=== PATIENT | male | born 2000 | race African-American/Black ===

== ENCOUNTER 2021-03-22 17:58 | Inpatient (IN) ==
[2021-03-22] MEDS ORDERED: ONDANSETRON 4 MG/2 ML VIAL IV STA (18:05)
[2021-03-22] MEDS ORDERED: SODIUM CHLORIDE 0.9% 2,000 ML IV STA (18:05)
[2021-03-22] MEDS ORDERED: ONDANSETRON 4 MG/2 ML VIAL ONE (18:05)
[2021-03-22 18:16] LABS: Basophils # 0.1 10*3/uL (0.0-0.2); Basophils % 0.5 % (0.0-0.8); Eosinophils # 0.1 10*3/uL (0.0-0.87); Eosinophils % 0.8 % (0.00-10.9); Hematocrit 44.5 VOL% (42.0-52.0); Hemoglobin 15.6 GM/DL (14.0-18.0); Immature Granulocytes % 0.2 %; Immature Granulocytes Absolute 0.02 #; Lymphocytes # 4.4 10*3/uL (1.4-4.0); Lymphocytes % 46.2 % (21.2-54.2); Mean Corpuscular HGB Conc 35.1 GM/DL (32-36); Mean Corpuscular Volume 89.2 FL (87-102); Mean Platelet Volume 10.1 FL (9.6-12.0); Monocytes % 10.2 % (1.7-12.7); Neutrophils % 42.1 % (38.7-73.9); Platelet Count 225 T/CUMM (130-400); Red Blood Count 4.99 MC/CUMM (3.8-5.5); Red Cell Distribution Width 12.9 % (9.3-17.3); White Blood Count 9.5 T/CUMM (4-12)
[2021-03-22] MEDS ORDERED: MORPHINE 4 MG/1 ML VIAL ONE (18:29)
[2021-03-22] MEDS ORDERED: PIPERACILLIN/TAZOBACTAM 3,375 MG in SODIUM CHLORIDE 0.9% 100 ML IV STA (18:30)
[2021-03-22] MEDS ORDERED: MORPHINE 4 MG/1 ML VIAL IV STA ×2 (18:30→19:12)
[2021-03-22] MEDS ORDERED: DIPH/TET/ACEL PERT BOOSTER VACCINE 0.5 ML VIAL IM ONE (18:30)
[2021-03-22 18:36] LABS: Albumin 4.5 G/DL (3.4-5.0); Bilirubin,Total 0.8 MG/DL (0.2-1.0); Calcium 9.5 MG/DL (8.5-10.1); Osmolality,Calculated 279.4 MOS/KG (273-304); Potassium 3.7 MMOL/L (3.5-5.1); Total Protein 8.8 G/DL (6.4-8.2)
[2021-03-22] MEDS ORDERED: ROCURONIUM 50 MG/5 ML VIAL IV ONE ×2 (19:01→20:19)
[2021-03-22] MEDS ORDERED: LIDOCAINE 2% 5 ML VIAL ONE (19:01)
[2021-03-22] MEDS ORDERED: ETOMIDATE 40 MG/20 ML VIAL IV ONE (19:01)
[2021-03-22] MEDS ORDERED: SUCCINYLCHOLINE 200 MG/10 ML VIAL ONE (19:01)
[2021-03-22] MEDS ORDERED: KETAMINE 500 MG/10 ML VIAL ONE (19:03)
[2021-03-22] MEDS ORDERED: MIDAZOLAM 2 MG/2 ML VIAL ONE ×3 (19:05→21:40)
[2021-03-22 19:20] LABS: Bilirubin,Urine Negative (Negative); Blood, Urine Negative (Negative); Glucose,Urine (UA) Negative (Negative); Ketones,Urine Negative (Negative); Mucus,Urine Occasional /LPF (Occasional); Nitrite,Urine Negative (Negative); Protein,Urine 30 MG/DL; RBC,Urine 6 /HPF (0-4); Squamous Epithelial Cell,Urine Occasional /HPF (0-10); Urine Appearance CLEAR (Clear); Urine Color Yellow (Yellow); Urine Specific Gravity 1.048 (1.001-1.035); Urine Urobilinogen < 2.0 EU/DL (0.2-1.0)
[2021-03-22 19:29] LABS: Barbiturates Screen,Urine Negative (Negative); Benzodiazepines Screen,Urine Negative (Negative); Cannabinoid Screen,Urine Positive (Negative); Opiate Screen,Urine Positive (Negative); Phencyclidine Screen,Urine Negative (Negative)
[2021-03-22] MEDS ORDERED: LACTATED RINGERS 2,000 ML IV ONE (20:15)
[2021-03-22] MEDS ORDERED: SODIUM CHLORIDE 0.9% 1,000 ML IV ONE (20:15)
[2021-03-22] MEDS ORDERED: PANTOPRAZOLE 40 MG VIAL IV ONE (20:20)
[2021-03-22] MEDS ORDERED: PHENYLEPHRINE 1 MG/10 ML SYRINGE IV ONE (20:27)
[2021-03-22] MEDS ORDERED: ALBUMIN 5% 12.5 GM/250 ML VIAL IV ONE (20:54)
[2021-03-22] MEDS ORDERED: HYDROmorphone 2 MG/1 ML VIAL ONE (21:42)
[2021-03-22] MEDS ORDERED: SEVOFLURANE 1 UNIT/15 MINUTE INH ONE (21:53)
[2021-03-22] MEDS ORDERED: LABETALOL 20 MG/4 ML SYRINGE IV ONE (21:53)
[2021-03-22] MEDS ORDERED: GLYCOPYRROLATE 0.4 MG/2 ML VIAL ONE (21:53)
[2021-03-22] MEDS ORDERED: LACTATED RINGERS 1,000 ML IV ONE (21:53)
[2021-03-22] MEDS ORDERED: NEOSTIGMINE 10 MG/10 ML VIAL ONE (21:55)
[2021-03-22] MEDS: LACTATED RINGERS 1,000 ML IV SCH (22:37)
[2021-03-22 23:06] LABS: Basophils % 0.2 % (0.0-0.8); Hematocrit 39.8 VOL% (42.0-52.0); Immature Granulocytes % 0.5 %; Immature Granulocytes Absolute 0.06 #; Lymphocytes # 2.2 10*3/uL (1.4-4.0); Lymphocytes % 16.2 % (21.2-54.2); Mean Corpuscular HGB Conc 33.4 GM/DL (32-36); Mean Platelet Volume 10.1 FL (9.6-12.0); Monocytes % 5.1 % (1.7-12.7); Platelet Count 187 T/CUMM (130-400); Red Blood Count 4.28 MC/CUMM (3.8-5.5); Red Cell Distribution Width 13.2 % (9.3-17.3)
[2021-03-22 23:07] LABS: Hemoglobin 13.3 GM/DL (14.0-18.0); White Blood Count 13.3 T/CUMM (4-12)
[2021-03-22 23:21] LABS: Albumin 3.1 G/DL (3.4-5.0); Bilirubin,Total 0.8 MG/DL (0.2-1.0); Calcium 7.5 MG/DL (8.5-10.1); Osmolality,Calculated 279.4 MOS/KG (273-304); Potassium 4.3 MMOL/L (3.5-5.1); Total Protein 6.3 G/DL (6.4-8.2)
[2021-03-22] MEDS: HYDROmorphone 2 MG/1 ML VIAL IV PRN (23:32)
[2021-03-23] MEDS: PIPERACILLIN/TAZOBACTAM 3,375 MG in SODIUM CHLORIDE 0.9% 100 ML IV SCH ×3 (03:09→17:30)
[2021-03-23] MEDS: HYDROmorphone 2 MG/1 ML VIAL IV PRN ×5 (03:18→21:07)
[2021-03-23 04:16] LABS: Basophils % 0.2 % (0.0-0.8); Eosinophils % 0.1 % (0.00-10.9); Hematocrit 38.5 VOL% (42.0-52.0); Hemoglobin 13.2 GM/DL (14.0-18.0); Immature Granulocytes % 0.5 %; Immature Granulocytes Absolute 0.06 #; Lymphocytes % 8.1 % (21.2-54.2); Mean Corpuscular HGB Conc 34.3 GM/DL (32-36); Mean Platelet Volume 10.5 FL (9.6-12.0); Monocytes % 5.1 % (1.7-12.7); Platelet Count 164 T/CUMM (130-400); Red Blood Count 4.23 MC/CUMM (3.8-5.5); Red Cell Distribution Width 13.2 % (9.3-17.3); White Blood Count 12.7 T/CUMM (4-12)
[2021-03-23 04:35] LABS: Albumin 3.1 G/DL (3.4-5.0); Bilirubin,Total 1.9 MG/DL (0.2-1.0); Calcium 7.4 MG/DL (8.5-10.1); Osmolality,Calculated 283.1 MOS/KG (273-304); Potassium 3.8 MMOL/L (3.5-5.1); Total Protein 5.9 G/DL (6.4-8.2)
[2021-03-23] MEDS: KETOROLAC 15 MG/1 ML VIAL IV PRN ×2 (06:22→14:28)
[2021-03-23] MEDS: LACTATED RINGERS 1,000 ML IV SCH ×3 (06:37→22:00)
[2021-03-23] MEDS: PANTOPRAZOLE 40 MG VIAL IV SCH (08:04)
[2021-03-23] MEDS: ONDANSETRON 4 MG/2 ML VIAL IV PRN ×2 (14:39→21:17)
[2021-03-24] MEDS: PIPERACILLIN/TAZOBACTAM 3,375 MG in SODIUM CHLORIDE 0.9% 100 ML IV SCH ×3 (02:02→18:51)
[2021-03-24] MEDS: HYDROmorphone 2 MG/1 ML VIAL IV PRN ×6 (02:10→22:00)
[2021-03-24 03:57] LABS: Basophils % 0.1 % (0.0-0.8); Eosinophils % 0.1 % (0.00-10.9); Hematocrit 34.2 VOL% (42.0-52.0); Hemoglobin 11.8 GM/DL (14.0-18.0); Immature Granulocytes % 1.6 %; Immature Granulocytes Absolute 0.25 #; Lymphocytes # 0.6 10*3/uL (1.4-4.0); Lymphocytes % 4.1 % (21.2-54.2); Mean Corpuscular HGB Conc 34.5 GM/DL (32-36); Mean Corpuscular Volume 90.7 FL (87-102); Mean Platelet Volume 10.5 FL (9.6-12.0); Monocytes % 6.6 % (1.7-12.7); Neutrophils % 87.5 % (38.7-73.9); Red Blood Count 3.77 MC/CUMM (3.8-5.5); White Blood Count 15.3 T/CUMM (4-12)
[2021-03-24 04:06] LABS: Platelet Count 127 T/CUMM (130-400)
[2021-03-24 04:15] LABS: Albumin 2.5 G/DL (3.4-5.0); Bilirubin,Total 1.6 MG/DL (0.2-1.0); Osmolality,Calculated 279.3 MOS/KG (273-304); Potassium 3.5 MMOL/L (3.5-5.1); Total Protein 5.5 G/DL (6.4-8.2)
[2021-03-24 04:38] LABS: Band Neutrophils 3 % (0-10); Hypochromasia Slight; Lymphocytes 7 % (20-55); Segmented Neutrophils 89 % (50-85); Total Cells Counted 100
[2021-03-24 04:39] LABS: Microcytosis Slight; Platelet Estimate Adequate
[2021-03-24] MEDS: LACTATED RINGERS 1,000 ML IV SCH ×2 (06:10→15:11)
[2021-03-24] MEDS: ONDANSETRON 4 MG/2 ML VIAL IV PRN ×3 (06:25→22:01)
[2021-03-24] MEDS: PANTOPRAZOLE 40 MG VIAL IV SCH (09:15)
[2021-03-24] MEDS: PROMETHAZINE 25 MG/1 ML VIAL IM PRN ×2 (10:08→17:47)
[2021-03-25] MEDS: HYDROmorphone 2 MG/1 ML VIAL IV PRN ×6 (00:11→20:18)
[2021-03-25] MEDS: PROMETHAZINE 25 MG/1 ML VIAL IM PRN ×3 (00:20→20:17)
[2021-03-25] MEDS: PIPERACILLIN/TAZOBACTAM 3,375 MG in SODIUM CHLORIDE 0.9% 100 ML IV SCH ×3 (02:46→18:25)
[2021-03-25 04:41] LABS: Basophils % 0.1 % (0.0-0.8); Eosinophils # 0.1 10*3/uL (0.0-0.87); Eosinophils % 0.6 % (0.00-10.9); Hematocrit 29.1 VOL% (42.0-52.0); Immature Granulocytes % 1.7 %; Immature Granulocytes Absolute 0.24 #; Lymphocytes # 1.2 10*3/uL (1.4-4.0); Lymphocytes % 8.6 % (21.2-54.2); Mean Corpuscular HGB Conc 34.4 GM/DL (32-36); Mean Corpuscular Volume 91.8 FL (87-102); Mean Platelet Volume 10.7 FL (9.6-12.0); Monocytes % 7.1 % (1.7-12.7); Neutrophils % 81.9 % (38.7-73.9); Platelet Count 128 T/CUMM (130-400); Red Blood Count 3.17 MC/CUMM (3.8-5.5); Red Cell Distribution Width 13.2 % (9.3-17.3); White Blood Count 14.1 T/CUMM (4-12)
[2021-03-25] MEDS: ONDANSETRON 4 MG/2 ML VIAL IV PRN ×3 (04:46→16:14)
[2021-03-25] MEDS: LACTATED RINGERS 1,000 ML IV SCH ×3 (04:48→15:41)
[2021-03-25 05:07] LABS: Albumin 2.2 G/DL (3.4-5.0); Bilirubin,Total 0.9 MG/DL (0.2-1.0); Osmolality,Calculated 279.3 MOS/KG (273-304); Potassium 3.6 MMOL/L (3.5-5.1); Total Protein 5.6 G/DL (6.4-8.2)
[2021-03-25 05:23] LABS: Eosinophils 2 % (0-10); Lymphocytes 7 % (20-55); Microcytosis Slight; Ovalocytes Slight; Platelet Estimate Adequate; Segmented Neutrophils 89 % (50-85); Total Cells Counted 100
[2021-03-25] MEDS: PANTOPRAZOLE 40 MG VIAL IV SCH (08:27)
[2021-03-25] MEDS: KETOROLAC 15 MG/1 ML VIAL IV PRN (11:04)
[2021-03-26] MEDS: HYDROmorphone 2 MG/1 ML VIAL IV PRN ×6 (00:25→22:51)
[2021-03-26] MEDS: ONDANSETRON 4 MG/2 ML VIAL IV PRN ×3 (00:26→18:17)
[2021-03-26] MEDS: PIPERACILLIN/TAZOBACTAM 3,375 MG in SODIUM CHLORIDE 0.9% 100 ML IV SCH ×2 (01:42→11:27)
[2021-03-26] MEDS: LACTATED RINGERS 1,000 ML IV SCH ×3 (01:44→20:06)
[2021-03-26] MEDS: PROMETHAZINE 25 MG/1 ML VIAL IM PRN ×3 (05:01→22:47)
[2021-03-26 06:51] LABS: Basophils % 0.2 % (0.0-0.8); Eosinophils # 0.1 10*3/uL (0.0-0.87); Eosinophils % 1.2 % (0.00-10.9); Hematocrit 29.6 VOL% (42.0-52.0); Hemoglobin 10.2 GM/DL (14.0-18.0); Immature Granulocytes % 0.3 %; Immature Granulocytes Absolute 0.04 #; Lymphocytes # 0.7 10*3/uL (1.4-4.0); Lymphocytes % 6.1 % (21.2-54.2); Mean Corpuscular HGB Conc 34.5 GM/DL (32-36); Mean Platelet Volume 10.5 FL (9.6-12.0); Monocytes % 8.3 % (1.7-12.7); Neutrophils % 83.9 % (38.7-73.9); Platelet Count 149 T/CUMM (130-400); Red Blood Count 3.29 MC/CUMM (3.8-5.5); Red Cell Distribution Width 13.2 % (9.3-17.3); White Blood Count 11.7 T/CUMM (4-12)
[2021-03-26 07:08] LABS: Albumin 2.4 G/DL (3.4-5.0); Bilirubin,Total 1.4 MG/DL (0.2-1.0); Calcium 8.6 MG/DL (8.5-10.1); Osmolality,Calculated 280.3 MOS/KG (273-304); Potassium 3.5 MMOL/L (3.5-5.1); Total Protein 6.3 G/DL (6.4-8.2)
[2021-03-26] MEDS: PANTOPRAZOLE 40 MG VIAL IV SCH (08:31)
[2021-03-26] MEDS: KETOROLAC 15 MG/1 ML VIAL IV PRN (08:32)
[2021-03-27] MEDS: ONDANSETRON 4 MG/2 ML VIAL IV PRN ×3 (03:03→21:33)
[2021-03-27] MEDS: HYDROmorphone 2 MG/1 ML VIAL IV PRN ×5 (03:03→21:33)
[2021-03-27] MEDS: LACTATED RINGERS 1,000 ML IV SCH ×2 (04:34→21:25)
[2021-03-27 06:33] LABS: Basophils % 0.2 % (0.0-0.8); Eosinophils # 0.2 10*3/uL (0.0-0.87); Eosinophils % 2.4 % (0.00-10.9); Hematocrit 28.8 VOL% (42.0-52.0); Immature Granulocytes % 0.6 %; Immature Granulocytes Absolute 0.05 #; Lymphocytes # 1.1 10*3/uL (1.4-4.0); Mean Corpuscular HGB Conc 34.7 GM/DL (32-36); Mean Corpuscular Volume 90.3 FL (87-102); Mean Platelet Volume 10.2 FL (9.6-12.0); Neutrophils % 71.8 % (38.7-73.9); Platelet Count 176 T/CUMM (130-400); Red Blood Count 3.19 MC/CUMM (3.8-5.5); Red Cell Distribution Width 13.1 % (9.3-17.3); White Blood Count 8.3 T/CUMM (4-12)
[2021-03-27 06:51] LABS: Albumin 2.3 G/DL (3.4-5.0); Bilirubin,Total 0.9 MG/DL (0.2-1.0); Calcium 8.3 MG/DL (8.5-10.1); Osmolality,Calculated 283.1 MOS/KG (273-304); Potassium 3.3 MMOL/L (3.5-5.1); Total Protein 6.2 G/DL (6.4-8.2)
[2021-03-27] MEDS: PROMETHAZINE 25 MG/1 ML VIAL IM PRN ×2 (07:04→15:26)
[2021-03-27] MEDS: ENOXAPARIN 40 MG/0.4 ML SYRINGE SUBCUT SCH (09:30)
[2021-03-27] MEDS: PANTOPRAZOLE 40 MG VIAL IV SCH (09:31)
[2021-03-27] MEDS: KETOROLAC 15 MG/1 ML VIAL IV PRN ×2 (09:31→15:27)
[2021-03-28] MEDS: HYDROmorphone 2 MG/1 ML VIAL IV PRN ×6 (01:30→20:48)
[2021-03-28] MEDS: ONDANSETRON 4 MG/2 ML VIAL IV PRN ×3 (05:20→20:57)
[2021-03-28 05:52] LABS: Basophils % 0.4 % (0.0-0.8); Eosinophils # 0.2 10*3/uL (0.0-0.87); Eosinophils % 1.4 % (0.00-10.9); Hematocrit 30.2 VOL% (42.0-52.0); Hemoglobin 10.7 GM/DL (14.0-18.0); Immature Granulocytes % 1.2 %; Immature Granulocytes Absolute 0.13 #; Lymphocytes % 9.1 % (21.2-54.2); Mean Corpuscular HGB Conc 35.4 GM/DL (32-36); Mean Corpuscular Volume 89.1 FL (87-102); Mean Platelet Volume 9.6 FL (9.6-12.0); Monocytes % 12.1 % (1.7-12.7); Neutrophils % 75.8 % (38.7-73.9); Platelet Count 202 T/CUMM (130-400); Red Blood Count 3.39 MC/CUMM (3.8-5.5); Red Cell Distribution Width 13.3 % (9.3-17.3); White Blood Count 10.8 T/CUMM (4-12)
[2021-03-28 06:07] LABS: Calcium 8.8 MG/DL (8.5-10.1); Osmolality,Calculated 284.1 MOS/KG (273-304); Potassium 3.4 MMOL/L (3.5-5.1)
[2021-03-28 06:10] LABS: Albumin 2.2 G/DL (3.4-5.0); Bilirubin,Total 2.4 MG/DL (0.2-1.0); Calcium 8.7 MG/DL (8.5-10.1); Osmolality,Calculated 278.5 MOS/KG (273-304); Potassium 3.8 MMOL/L (3.5-5.1); Total Protein 6.9 G/DL (6.4-8.2)
[2021-03-28] MEDS: PANTOPRAZOLE 40 MG VIAL IV SCH (08:58)
[2021-03-28] MEDS: ENOXAPARIN 40 MG/0.4 ML SYRINGE SUBCUT SCH (08:58)
[2021-03-28] MEDS: PROMETHAZINE 25 MG/1 ML VIAL IM PRN (16:10)
[2021-03-29] MEDS: ONDANSETRON 4 MG/2 ML VIAL IV PRN ×3 (04:07→20:47)
[2021-03-29] MEDS: HYDROmorphone 2 MG/1 ML VIAL IV PRN ×5 (04:12→20:50)
[2021-03-29] MEDS: PANTOPRAZOLE 40 MG VIAL IV SCH (08:40)
[2021-03-29] MEDS: ENOXAPARIN 40 MG/0.4 ML SYRINGE SUBCUT SCH (08:42)
[2021-03-29] MEDS: LACTATED RINGERS 1,000 ML IV SCH ×2 (12:19→20:22)
[2021-03-30] MEDS: HYDROmorphone 2 MG/1 ML VIAL IV PRN ×6 (00:48→20:18)
[2021-03-30] MEDS: ONDANSETRON 4 MG/2 ML VIAL IV PRN ×3 (03:11→16:03)
[2021-03-30] MEDS: LACTATED RINGERS 1,000 ML IV SCH ×3 (03:30→20:17)
[2021-03-30 05:46] LABS: Basophils % 0.2 % (0.0-0.8); Eosinophils # 0.2 10*3/uL (0.0-0.87); Eosinophils % 0.8 % (0.00-10.9); Hematocrit 32.4 VOL% (42.0-52.0); Hemoglobin 11.4 GM/DL (14.0-18.0); Immature Granulocytes % 1.3 %; Immature Granulocytes Absolute 0.26 #; Lymphocytes # 0.9 10*3/uL (1.4-4.0); Lymphocytes % 4.3 % (21.2-54.2); Mean Corpuscular HGB Conc 35.2 GM/DL (32-36); Mean Platelet Volume 9.7 FL (9.6-12.0); Monocytes % 7.8 % (1.7-12.7); Neutrophils % 85.6 % (38.7-73.9); Platelet Count 260 T/CUMM (130-400); Red Blood Count 3.68 MC/CUMM (3.8-5.5); Red Cell Distribution Width 13.6 % (9.3-17.3)
[2021-03-30 06:08] LABS: Albumin 2.5 G/DL (3.4-5.0); Bilirubin,Total 3.9 MG/DL (0.2-1.0); Osmolality,Calculated 274.7 MOS/KG (273-304); Potassium 3.8 MMOL/L (3.5-5.1); Total Protein 7.1 G/DL (6.4-8.2)
[2021-03-30 06:28] LABS: Band Neutrophils 3 % (0-10); Hypochromasia 1+; Lymphocytes 2 % (20-55); Microcytosis 1+; Segmented Neutrophils 91 % (50-85); Total Cells Counted 100
[2021-03-30 06:29] LABS: Platelet Estimate Normal; Target Cells Slight
[2021-03-30] MEDS: PANTOPRAZOLE 40 MG VIAL IV SCH (08:28)
[2021-03-30] MEDS: ENOXAPARIN 40 MG/0.4 ML SYRINGE SUBCUT SCH (08:49)
[2021-03-30] MEDS: PROMETHAZINE 25 MG/1 ML VIAL IM PRN (12:25)
[2021-03-31] MEDS: HYDROmorphone 2 MG/1 ML VIAL IV PRN ×5 (00:47→20:46)
[2021-03-31] MEDS: ONDANSETRON 4 MG/2 ML VIAL IV PRN ×3 (00:50→20:56)
[2021-03-31] MEDS: LACTATED RINGERS 1,000 ML IV SCH ×3 (04:58→20:48)
[2021-03-31 05:19] LABS: Basophils % 0.2 % (0.0-0.8); Eosinophils # 0.2 10*3/uL (0.0-0.87); Eosinophils % 1.1 % (0.00-10.9); Hemoglobin 10.6 GM/DL (14.0-18.0); Immature Granulocytes % 1.4 %; Immature Granulocytes Absolute 0.22 #; Lymphocytes # 1.3 10*3/uL (1.4-4.0); Lymphocytes % 7.9 % (21.2-54.2); Mean Corpuscular HGB Conc 34.2 GM/DL (32-36); Mean Corpuscular Volume 88.1 FL (87-102); Mean Platelet Volume 9.2 FL (9.6-12.0); Monocytes % 7.4 % (1.7-12.7); Platelet Count 255 T/CUMM (130-400); Red Blood Count 3.52 MC/CUMM (3.8-5.5); Red Cell Distribution Width 13.6 % (9.3-17.3)
[2021-03-31 05:53] LABS: Calcium 9.2 MG/DL (8.5-10.1); Osmolality,Calculated 277.5 MOS/KG (273-304); Potassium 4.4 MMOL/L (3.5-5.1)
[2021-03-31 09:37] LABS: Albumin 2.4 G/DL (3.4-5.0); Bilirubin,Direct 3.22 MG/DL (0.0-0.20); Bilirubin,Indirect 1.4 MG/DL (0.0-1.0); Bilirubin,Total 4.6 MG/DL (0.2-1.0); Total Protein 7.1 G/DL (6.4-8.2)
[2021-03-31] MEDS: PANTOPRAZOLE 40 MG VIAL IV SCH (10:23)
[2021-03-31] MEDS: ENOXAPARIN 40 MG/0.4 ML SYRINGE SUBCUT SCH (10:24)
[2021-03-31] MEDS: METOCLOPRAMIDE 10 MG/2 ML VIAL IV SCH ×2 (11:55→18:30)
[2021-04-01] MEDS: METOCLOPRAMIDE 10 MG/2 ML VIAL IV SCH ×5 (00:44→23:53)
[2021-04-01] MEDS: HYDROmorphone 2 MG/1 ML VIAL IV PRN ×6 (00:45→20:52)
[2021-04-01] MEDS: ONDANSETRON 4 MG/2 ML VIAL IV PRN ×2 (05:02→17:05)
[2021-04-01] MEDS: LACTATED RINGERS 1,000 ML IV SCH ×3 (05:03→21:50)
[2021-04-01 06:29] LABS: Basophils % 0.3 % (0.0-0.8); Eosinophils # 0.2 10*3/uL (0.0-0.87); Eosinophils % 1.3 % (0.00-10.9); Hematocrit 30.7 VOL% (42.0-52.0); Hemoglobin 10.9 GM/DL (14.0-18.0); Immature Granulocytes % 1.1 %; Immature Granulocytes Absolute 0.13 #; Lymphocytes # 1.2 10*3/uL (1.4-4.0); Lymphocytes % 10.3 % (21.2-54.2); Mean Corpuscular HGB Conc 35.5 GM/DL (32-36); Mean Platelet Volume 9.5 FL (9.6-12.0); Monocytes % 8.4 % (1.7-12.7); Neutrophils % 78.6 % (38.7-73.9); Platelet Count 268 T/CUMM (130-400); Red Blood Count 3.49 MC/CUMM (3.8-5.5); White Blood Count 11.9 T/CUMM (4-12)
[2021-04-01 06:58] LABS: Albumin 2.5 G/DL (3.4-5.0); Bilirubin,Total 5.3 MG/DL (0.2-1.0); Calcium 9.1 MG/DL (8.5-10.1); Osmolality,Calculated 277.5 MOS/KG (273-304); Total Protein 7.1 G/DL (6.4-8.2)
[2021-04-01] MEDS: ENOXAPARIN 40 MG/0.4 ML SYRINGE SUBCUT SCH (09:27)
[2021-04-01] MEDS: PANTOPRAZOLE 40 MG VIAL IV SCH (09:27)
[2021-04-01] MEDS: ursodioL 300 MG CAPSULE PO SCH ×2 (10:46→20:51)
[2021-04-01] MEDS ORDERED: DEXTROSE 50% 25 GM/50 ML VIAL IV PRN (14:04)
[2021-04-01] MEDS ORDERED: GLUCAGON 1 MG VIAL IM PRN (14:04)
[2021-04-01] MEDS ORDERED: MULTIVITAMIN INJ 10 ML in AMINO ACIDS/DEXT/LYTES 5-15% 2,000 ML IV ONE (17:00)
[2021-04-01] MEDS ORDERED: DEXTROSE 10% 1,000 ML IV PRN (17:00)
[2021-04-01] MEDS: INSULIN REGULAR 100 UNIT/ML SUBCUT SCH (18:22)
[2021-04-02] MEDS: INSULIN REGULAR 100 UNIT/ML SUBCUT SCH ×4 (00:07→17:47)
[2021-04-02] MEDS: ONDANSETRON 4 MG/2 ML VIAL IV PRN ×3 (01:22→19:50)
[2021-04-02] MEDS: HYDROmorphone 2 MG/1 ML VIAL IV PRN ×6 (01:23→19:49)
[2021-04-02 05:19] LABS: Basophils % 0.3 % (0.0-0.8); Eosinophils # 0.1 10*3/uL (0.0-0.87); Eosinophils % 1.5 % (0.00-10.9); Hematocrit 30.6 VOL% (42.0-52.0); Hemoglobin 10.7 GM/DL (14.0-18.0); Immature Granulocytes % 0.9 %; Immature Granulocytes Absolute 0.09 #; Lymphocytes # 1.2 10*3/uL (1.4-4.0); Lymphocytes % 12.9 % (21.2-54.2); Mean Corpuscular Volume 88.2 FL (87-102); Mean Platelet Volume 9.8 FL (9.6-12.0); Monocytes % 9.2 % (1.7-12.7); Neutrophils % 75.2 % (38.7-73.9); Platelet Count 283 T/CUMM (130-400); Red Blood Count 3.47 MC/CUMM (3.8-5.5); Red Cell Distribution Width 13.8 % (9.3-17.3); White Blood Count 9.6 T/CUMM (4-12)
[2021-04-02 05:41] LABS: Albumin 2.4 G/DL (3.4-5.0); Bilirubin,Total 4.3 MG/DL (0.2-1.0); Osmolality,Calculated 276.7 MOS/KG (273-304); Total Protein 7.2 G/DL (6.4-8.2)
[2021-04-02] MEDS: METOCLOPRAMIDE 10 MG/2 ML VIAL IV SCH ×4 (05:53→23:55)
[2021-04-02] MEDS: LACTATED RINGERS 1,000 ML IV SCH ×3 (06:00→19:52)
[2021-04-02] MEDS: ursodioL 300 MG CAPSULE PO SCH ×2 (09:05→20:25)
[2021-04-02] MEDS: PANTOPRAZOLE 40 MG VIAL IV SCH (09:05)
[2021-04-02] MEDS: ENOXAPARIN 40 MG/0.4 ML SYRINGE SUBCUT SCH (09:06)
[2021-04-02] MEDS: FAT EMULSION 20% 250 ML IV SCH (13:17)
[2021-04-02] MEDS: MULTIVITAMIN INJ 10 ML in AMINO ACIDS/DEXT/LYTES 5-15% 2,000 ML IV SCH (17:05)
[2021-04-03] MEDS: INSULIN REGULAR 100 UNIT/ML SUBCUT SCH ×4 (00:05→17:21)
[2021-04-03] MEDS: HYDROmorphone 2 MG/1 ML VIAL IV PRN ×3 (00:06→08:42)
[2021-04-03] MEDS: LACTATED RINGERS 1,000 ML IV SCH ×4 (00:06→20:18)
[2021-04-03] MEDS: ONDANSETRON 4 MG/2 ML VIAL IV PRN ×3 (04:17→19:45)
[2021-04-03 05:58] LABS: Albumin 2.6 G/DL (3.4-5.0); Bilirubin,Total 3.6 MG/DL (0.2-1.0); Calcium 9.1 MG/DL (8.5-10.1); Osmolality,Calculated 275.7 MOS/KG (273-304); Potassium 4.1 MMOL/L (3.5-5.1); Total Protein 7.7 G/DL (6.4-8.2)
[2021-04-03] MEDS: METOCLOPRAMIDE 10 MG/2 ML VIAL IV SCH ×4 (06:01→23:58)
[2021-04-03] MEDS: PANTOPRAZOLE 40 MG VIAL IV SCH (08:42)
[2021-04-03] MEDS: ENOXAPARIN 40 MG/0.4 ML SYRINGE SUBCUT SCH (08:43)
[2021-04-03] MEDS: ursodioL 300 MG CAPSULE PO SCH ×2 (08:43→20:54)
[2021-04-03] MEDS: MULTIVITAMIN INJ 10 ML in AMINO ACIDS/DEXT/LYTES 5-15% 2,000 ML IV SCH ×2 (08:43→10:18)
[2021-04-03] MEDS ORDERED: MORPHINE 4 MG/1 ML VIAL IM PRN (08:50)
[2021-04-03] MEDS: FAT EMULSION 20% 250 ML IV SCH (14:38)
[2021-04-03] MEDS: MORPHINE 4 MG/1 ML VIAL IV PRN ×3 (14:45→20:04)
[2021-04-04] MEDS: INSULIN REGULAR 100 UNIT/ML SUBCUT SCH ×4 (00:02→18:31)
[2021-04-04] MEDS: MORPHINE 4 MG/1 ML VIAL IV PRN ×6 (00:15→23:46)
[2021-04-04] MEDS: MULTIVITAMIN INJ 10 ML in AMINO ACIDS/DEXT/LYTES 5-15% 2,000 ML IV SCH ×2 (03:15→04:56)
[2021-04-04] MEDS: LACTATED RINGERS 1,000 ML IV SCH ×3 (03:40→21:25)
[2021-04-04] MEDS: ONDANSETRON 4 MG/2 ML VIAL IV PRN ×2 (03:52→17:14)
[2021-04-04] MEDS: METOCLOPRAMIDE 10 MG/2 ML VIAL IV SCH ×4 (06:38→23:46)
[2021-04-04 06:58] LABS: Albumin 2.7 G/DL (3.4-5.0); Bilirubin,Direct 1.87 MG/DL (0.0-0.20); Bilirubin,Total 2.9 MG/DL (0.2-1.0); Total Protein 8.4 G/DL (6.4-8.2)
[2021-04-04] MEDS: ENOXAPARIN 40 MG/0.4 ML SYRINGE SUBCUT SCH (09:24)
[2021-04-04] MEDS: ursodioL 300 MG CAPSULE PO SCH ×2 (09:24→21:18)
[2021-04-04] MEDS: PANTOPRAZOLE 40 MG VIAL IV SCH (09:25)
[2021-04-04] MEDS: FAT EMULSION 20% 250 ML IV SCH (14:44)
[2021-04-05] MEDS: INSULIN REGULAR 100 UNIT/ML SUBCUT SCH ×4 (00:53→17:36)
[2021-04-05] MEDS: MULTIVITAMIN INJ 10 ML in AMINO ACIDS/DEXT/LYTES 5-15% 2,000 ML IV SCH ×2 (01:04→17:17)
[2021-04-05] MEDS: MORPHINE 4 MG/1 ML VIAL IV PRN ×4 (04:13→21:23)
[2021-04-05] MEDS: ONDANSETRON 4 MG/2 ML VIAL IV PRN ×2 (04:13→14:40)
[2021-04-05] MEDS: LACTATED RINGERS 1,000 ML IV SCH ×2 (04:46→11:05)
[2021-04-05] MEDS: METOCLOPRAMIDE 10 MG/2 ML VIAL IV SCH ×3 (05:47→17:02)
[2021-04-05 05:50] LABS: Basophils # 0.1 10*3/uL (0.0-0.2); Basophils % 0.6 % (0.0-0.8); Eosinophils # 0.1 10*3/uL (0.0-0.87); Eosinophils % 0.7 % (0.00-10.9); Hematocrit 35.2 VOL% (42.0-52.0); Hemoglobin 12.4 GM/DL (14.0-18.0); Immature Granulocytes % 1.4 %; Immature Granulocytes Absolute 0.17 #; Lymphocytes # 1.5 10*3/uL (1.4-4.0); Lymphocytes % 12.3 % (21.2-54.2); Mean Corpuscular HGB Conc 35.2 GM/DL (32-36); Mean Corpuscular Volume 88.2 FL (87-102); Mean Platelet Volume 10.5 FL (9.6-12.0); Monocytes % 8.8 % (1.7-12.7); Neutrophils % 76.2 % (38.7-73.9); Platelet Count 348 T/CUMM (130-400); Red Blood Count 3.99 MC/CUMM (3.8-5.5); White Blood Count 12.5 T/CUMM (4-12)
[2021-04-05 06:38] LABS: Albumin 2.9 G/DL (3.4-5.0); Bilirubin,Total 2.2 MG/DL (0.2-1.0); Calcium 9.7 MG/DL (8.5-10.1); Osmolality,Calculated 272.5 MOS/KG (273-304); Potassium 4.1 MMOL/L (3.5-5.1); Total Protein 8.7 G/DL (6.4-8.2)
[2021-04-05] MEDS: ursodioL 300 MG CAPSULE PO SCH ×2 (09:08→21:23)
[2021-04-05] MEDS: PANTOPRAZOLE 40 MG VIAL IV SCH (09:08)
[2021-04-05] MEDS: ENOXAPARIN 40 MG/0.4 ML SYRINGE SUBCUT SCH (09:08)
[2021-04-05] MEDS: FAT EMULSION 20% 250 ML IV SCH (13:23)
[2021-04-06] MEDS: METOCLOPRAMIDE 10 MG/2 ML VIAL IV SCH ×4 (00:16→18:12)
[2021-04-06] MEDS: INSULIN REGULAR 100 UNIT/ML SUBCUT SCH ×5 (00:19→23:38)
[2021-04-06] MEDS: LACTATED RINGERS 1,000 ML IV SCH ×2 (00:40→04:18)
[2021-04-06] MEDS: MORPHINE 4 MG/1 ML VIAL IV PRN ×2 (02:24→08:01)
[2021-04-06] MEDS: ONDANSETRON 4 MG/2 ML VIAL IV PRN ×2 (03:09→18:31)
[2021-04-06 07:35] LABS: Basophils # 0.1 10*3/uL (0.0-0.2); Basophils % 0.8 % (0.0-0.8); Eosinophils # 0.2 10*3/uL (0.0-0.87); Eosinophils % 1.3 % (0.00-10.9); Immature Granulocytes % 1.6 %; Immature Granulocytes Absolute 0.18 #; Lymphocytes # 1.3 10*3/uL (1.4-4.0); Lymphocytes % 11.5 % (21.2-54.2); Mean Corpuscular HGB Conc 34.3 GM/DL (32-36); Mean Corpuscular Volume 88.4 FL (87-102); Mean Platelet Volume 10.6 FL (9.6-12.0); Monocytes % 11.5 % (1.7-12.7); Neutrophils % 73.3 % (38.7-73.9); Platelet Count 337 T/CUMM (130-400); Red Blood Count 3.96 MC/CUMM (3.8-5.5); Red Cell Distribution Width 13.7 % (9.3-17.3); White Blood Count 11.3 T/CUMM (4-12)
[2021-04-06 08:01] LABS: Bilirubin,Total 1.8 MG/DL (0.2-1.0); Calcium 9.2 MG/DL (8.5-10.1); Osmolality,Calculated 272.8 MOS/KG (273-304); Potassium 4.1 MMOL/L (3.5-5.1); Total Protein 8.5 G/DL (6.4-8.2)
[2021-04-06] MEDS: PANTOPRAZOLE 40 MG VIAL IV SCH (09:40)
[2021-04-06] MEDS: ursodioL 300 MG CAPSULE PO SCH ×2 (09:40→21:35)
[2021-04-06] MEDS: ENOXAPARIN 40 MG/0.4 ML SYRINGE SUBCUT SCH (09:40)
[2021-04-06] MEDS ORDERED: GLUCAGON 1 MG VIAL IM PRN ×2 (11:01→12:57)
[2021-04-06] MEDS ORDERED: DEXTROSE 50% 25 GM/50 ML VIAL IV PRN ×2 (11:01→12:57)
[2021-04-06] MEDS: KETOROLAC 15 MG/1 ML VIAL IV PRN ×3 (12:55→23:40)
[2021-04-06] MEDS: MULTIVITAMIN INJ 10 ML in AMINO ACIDS/DEXT/LYTES 5-15% 2,000 ML IV SCH (14:40)
[2021-04-06] MEDS: FAT EMULSION 20% 250 ML IV SCH (14:40)
[2021-04-07] MEDS: METOCLOPRAMIDE 10 MG/2 ML VIAL IV SCH ×5 (00:51→17:07)
[2021-04-07] MEDS: ONDANSETRON 4 MG/2 ML VIAL IV PRN (03:38)
[2021-04-07] MEDS: INSULIN REGULAR 100 UNIT/ML SUBCUT SCH ×3 (05:51→17:22)
[2021-04-07] MEDS: KETOROLAC 15 MG/1 ML VIAL IV PRN ×3 (05:51→20:38)
[2021-04-07] MEDS: [UNRECOGNIZED DRUG - OTHER] IV SCH (05:57)
[2021-04-07] MEDS: MULTIVITAMIN IV SCH (05:57)
[2021-04-07] MEDS: INSULIN REGULAR IV SCH (05:57)
[2021-04-07] MEDS: ursodioL 300 MG CAPSULE PO SCH ×2 (09:16→20:36)
[2021-04-07] MEDS: ENOXAPARIN 40 MG/0.4 ML SYRINGE SUBCUT SCH (09:16)
[2021-04-07] MEDS: PANTOPRAZOLE 40 MG VIAL IV SCH (09:17)
[2021-04-07] MEDS: FAT EMULSION 20% 250 ML IV SCH (13:45)
[2021-04-08] MEDS: MULTIVITAMIN IV SCH ×3 (00:29→16:51)
[2021-04-08] MEDS: INSULIN REGULAR IV SCH ×3 (00:29→16:51)
[2021-04-08] MEDS: METOCLOPRAMIDE 10 MG/2 ML VIAL IV SCH ×4 (00:29→17:33)
[2021-04-08] MEDS: [UNRECOGNIZED DRUG - OTHER] IV SCH (00:29)
[2021-04-08] MEDS: INSULIN REGULAR 100 UNIT/ML SUBCUT SCH ×4 (01:13→17:33)
[2021-04-08 06:25] LABS: Basophils # 0.1 10*3/uL (0.0-0.2); Eosinophils # 0.3 10*3/uL (0.0-0.87); Eosinophils % 2.4 % (0.00-10.9); Hemoglobin 13.8 GM/DL (14.0-18.0); Immature Granulocytes % 1.5 %; Immature Granulocytes Absolute 0.18 #; Lymphocytes % 17.1 % (21.2-54.2); Mean Corpuscular HGB Conc 35.4 GM/DL (32-36); Mean Corpuscular Volume 87.4 FL (87-102); Monocytes % 10.7 % (1.7-12.7); Neutrophils % 67.3 % (38.7-73.9); Platelet Count 383 T/CUMM (130-400); Red Blood Count 4.46 MC/CUMM (3.8-5.5); Red Cell Distribution Width 13.9 % (9.3-17.3); White Blood Count 11.9 T/CUMM (4-12)
[2021-04-08 06:51] LABS: Albumin 3.3 G/DL (3.4-5.0); Bilirubin,Total 1.7 MG/DL (0.2-1.0); Osmolality,Calculated 273.4 MOS/KG (273-304); Potassium 3.8 MMOL/L (3.5-5.1)
[2021-04-08] MEDS: PANTOPRAZOLE 40 MG VIAL IV SCH ×2 (08:12→08:24)
[2021-04-08] MEDS: ursodioL 300 MG CAPSULE PO SCH ×3 (08:12→20:49)
[2021-04-08] MEDS: ENOXAPARIN 40 MG/0.4 ML SYRINGE SUBCUT SCH (09:49)
[2021-04-08] MEDS: KETOROLAC 15 MG/1 ML VIAL IV PRN (09:55)
[2021-04-08] MEDS: FAT EMULSION 20% 250 ML IV SCH (16:39)
[2021-04-08] MEDS: AMINO ACIDS IV SCH ×2 (16:42→16:51)
[2021-04-08] MEDS: LYTES IV SCH ×2 (16:42→16:51)
[2021-04-08] MEDS: DEXT IV SCH ×2 (16:42→16:51)
[2021-04-09] MEDS: METOCLOPRAMIDE 10 MG/2 ML VIAL IV SCH ×4 (00:28→18:07)
[2021-04-09] MEDS: INSULIN REGULAR 100 UNIT/ML SUBCUT SCH ×4 (02:01→18:57)
[2021-04-09] MEDS: ONDANSETRON 4 MG/2 ML VIAL IV PRN (06:39)
[2021-04-09] MEDS: ursodioL 300 MG CAPSULE PO SCH ×2 (08:51→23:09)
[2021-04-09] MEDS: PANTOPRAZOLE 40 MG VIAL IV SCH (08:52)
[2021-04-09 10:19] LABS: Calcium 9.5 MG/DL (8.5-10.1); Osmolality,Calculated 273.4 MOS/KG (273-304); Potassium 3.9 MMOL/L (3.5-5.1)
[2021-04-09] MEDS: ENOXAPARIN 40 MG/0.4 ML SYRINGE SUBCUT SCH (10:29)
[2021-04-09] MEDS: MULTIVITAMIN IV SCH (11:47)
[2021-04-09] MEDS: DEXT IV SCH (11:47)
[2021-04-09] MEDS: INSULIN REGULAR IV SCH (11:47)
[2021-04-09] MEDS: AMINO ACIDS IV SCH (11:47)
[2021-04-09] MEDS: LYTES IV SCH (11:47)
[2021-04-09] MEDS: FAT EMULSION 20% 250 ML IV SCH (14:55)
[2021-04-09] MEDS: KETOROLAC 15 MG/1 ML VIAL IV PRN (18:11)
[2021-04-10] MEDS: INSULIN REGULAR 100 UNIT/ML SUBCUT SCH ×4 (00:20→18:59)
[2021-04-10] MEDS: METOCLOPRAMIDE 10 MG/2 ML VIAL IV SCH ×5 (00:20→23:00)
[2021-04-10 05:40] LABS: Basophils # 0.1 10*3/uL (0.0-0.2); Eosinophils # 0.3 10*3/uL (0.0-0.87); Eosinophils % 2.4 % (0.00-10.9); Hematocrit 38.4 VOL% (42.0-52.0); Hemoglobin 13.4 GM/DL (14.0-18.0); Immature Granulocytes % 1.5 %; Immature Granulocytes Absolute 0.17 #; Lymphocytes # 1.7 10*3/uL (1.4-4.0); Lymphocytes % 15.3 % (21.2-54.2); Mean Corpuscular HGB Conc 34.9 GM/DL (32-36); Mean Corpuscular Volume 87.3 FL (87-102); Mean Platelet Volume 10.7 FL (9.6-12.0); Monocytes % 11.1 % (1.7-12.7); Neutrophils % 68.7 % (38.7-73.9); Platelet Count 354 T/CUMM (130-400); Red Cell Distribution Width 13.5 % (9.3-17.3); White Blood Count 11.3 T/CUMM (4-12)
[2021-04-10] MEDS: DEXT IV SCH (05:49)
[2021-04-10] MEDS: AMINO ACIDS IV SCH (05:49)
[2021-04-10] MEDS: INSULIN REGULAR IV SCH (05:49)
[2021-04-10] MEDS: LYTES IV SCH (05:49)
[2021-04-10] MEDS: MULTIVITAMIN IV SCH (05:49)
[2021-04-10 05:57] LABS: Albumin 3.1 G/DL (3.4-5.0); Bilirubin,Total 1.5 MG/DL (0.2-1.0); Calcium 9.5 MG/DL (8.5-10.1); Osmolality,Calculated 274.2 MOS/KG (273-304); Potassium 3.7 MMOL/L (3.5-5.1); Total Protein 8.4 G/DL (6.4-8.2)
[2021-04-10 06:41] LABS: Ovalocytes Few; Platelet Estimate Increased
[2021-04-10] MEDS: ENOXAPARIN 40 MG/0.4 ML SYRINGE SUBCUT SCH (09:27)
[2021-04-10] MEDS: ursodioL 300 MG CAPSULE PO SCH ×2 (09:27→23:38)
[2021-04-10] MEDS: PANTOPRAZOLE 40 MG VIAL IV SCH (09:27)
[2021-04-10] MEDS: FAT EMULSION 20% 250 ML IV SCH (14:26)
[2021-04-10] MEDS: KETOROLAC 15 MG/1 ML VIAL IV PRN (15:38)
[2021-04-11] MEDS: LYTES IV SCH ×2 (00:16→17:56)
[2021-04-11] MEDS: DEXT IV SCH ×2 (00:16→17:56)
[2021-04-11] MEDS: INSULIN REGULAR IV SCH ×2 (00:16→17:56)
[2021-04-11] MEDS: MULTIVITAMIN IV SCH ×2 (00:16→17:56)
[2021-04-11] MEDS: AMINO ACIDS IV SCH ×2 (00:16→17:56)
[2021-04-11] MEDS: INSULIN REGULAR 100 UNIT/ML SUBCUT SCH ×4 (01:04→18:55)
[2021-04-11] MEDS: KETOROLAC 15 MG/1 ML VIAL IV PRN (05:21)
[2021-04-11 05:50] LABS: Albumin 3.1 G/DL (3.4-5.0); Bilirubin,Total 1.6 MG/DL (0.2-1.0); Calcium 9.2 MG/DL (8.5-10.1); Osmolality,Calculated 271.5 MOS/KG (273-304); Potassium 3.4 MMOL/L (3.5-5.1); Total Protein 8.3 G/DL (6.4-8.2)
[2021-04-11] MEDS: METOCLOPRAMIDE 10 MG/2 ML VIAL IV SCH ×3 (06:34→17:55)
[2021-04-11] MEDS: PANTOPRAZOLE 40 MG VIAL IV SCH (09:14)
[2021-04-11] MEDS: ursodioL 300 MG CAPSULE PO SCH ×2 (09:14→21:31)
[2021-04-11] MEDS: ENOXAPARIN 40 MG/0.4 ML SYRINGE SUBCUT SCH (09:14)
[2021-04-11] MEDS: ONDANSETRON 4 MG/2 ML VIAL IV PRN (12:48)
[2021-04-11] MEDS ORDERED: POTASSIUM CHLORIDE RIDER 20 MEQ/100 ML PREMIX IV ONE (16:00)
[2021-04-11] MEDS: FAT EMULSION 20% 250 ML IV SCH (16:49)
[2021-04-11] MEDS ORDERED: KETOROLAC 30 MG/1 ML VIAL IV ONE (21:17)
[2021-04-12] MEDS: INSULIN REGULAR 100 UNIT/ML SUBCUT SCH ×5 (01:05→23:46)
[2021-04-12] MEDS: METOCLOPRAMIDE 10 MG/2 ML VIAL IV SCH ×4 (01:34→17:33)
[2021-04-12 04:55] LABS: Albumin 3.1 G/DL (3.4-5.0); Bilirubin,Total 1.4 MG/DL (0.2-1.0); Calcium 9.5 MG/DL (8.5-10.1); Osmolality,Calculated 274.5 MOS/KG (273-304); Potassium 3.7 MMOL/L (3.5-5.1); Total Protein 8.3 G/DL (6.4-8.2)
[2021-04-12] MEDS: PANTOPRAZOLE 40 MG VIAL IV SCH (09:05)
[2021-04-12] MEDS: ENOXAPARIN 40 MG/0.4 ML SYRINGE SUBCUT SCH (09:06)
[2021-04-12] MEDS: ursodioL 300 MG CAPSULE PO SCH ×2 (09:06→21:02)
[2021-04-12] MEDS: [UNRECOGNIZED DRUG - OTHER] IV SCH (13:13)
[2021-04-12] MEDS: INSULIN REGULAR IV SCH ×2 (13:13→14:07)
[2021-04-12] MEDS: MULTIVITAMIN IV SCH ×2 (13:13→14:07)
[2021-04-12] MEDS: ONDANSETRON 4 MG/2 ML VIAL IV PRN (13:15)
[2021-04-12] MEDS: LYTES IV SCH (14:07)
[2021-04-12] MEDS: DEXT IV SCH (14:07)
[2021-04-12] MEDS: AMINO ACIDS IV SCH (14:07)
[2021-04-12] MEDS: FAT EMULSION 20% 250 ML IV SCH (14:19)
[2021-04-13] MEDS: METOCLOPRAMIDE 10 MG/2 ML VIAL IV SCH ×4 (00:26→18:40)
[2021-04-13] MEDS: INSULIN REGULAR 100 UNIT/ML SUBCUT SCH ×3 (05:29→19:01)
[2021-04-13 06:20] LABS: Albumin 3.1 G/DL (3.4-5.0); Bilirubin,Total 1.4 MG/DL (0.2-1.0); Osmolality,Calculated 274.2 MOS/KG (273-304); Potassium 3.5 MMOL/L (3.5-5.1); Total Protein 8.1 G/DL (6.4-8.2)
[2021-04-13] MEDS: [UNRECOGNIZED DRUG - OTHER] IV SCH (06:33)
[2021-04-13] MEDS: MULTIVITAMIN IV SCH (06:33)
[2021-04-13] MEDS: INSULIN REGULAR IV SCH (06:33)
[2021-04-13] MEDS: PANTOPRAZOLE 40 MG VIAL IV SCH (08:47)
[2021-04-13] MEDS: ursodioL 300 MG CAPSULE PO SCH ×2 (08:47→21:28)
[2021-04-13] MEDS: ENOXAPARIN 40 MG/0.4 ML SYRINGE SUBCUT SCH (08:48)
[2021-04-13] MEDS: FAT EMULSION 20% 250 ML IV SCH (14:05)
[2021-04-14] MEDS: METOCLOPRAMIDE 10 MG/2 ML VIAL IV SCH ×4 (00:04→18:00)
[2021-04-14] MEDS: MULTIVITAMIN IV SCH ×2 (00:09→18:34)
[2021-04-14] MEDS: INSULIN REGULAR IV SCH ×2 (00:09→18:34)
[2021-04-14] MEDS: [UNRECOGNIZED DRUG - OTHER] IV SCH ×2 (00:09→18:34)
[2021-04-14] MEDS: INSULIN REGULAR 100 UNIT/ML SUBCUT SCH ×4 (01:35→17:29)
[2021-04-14 06:05] LABS: Albumin 2.9 G/DL (3.4-5.0); Bilirubin,Total 1.5 MG/DL (0.2-1.0); Calcium 8.9 MG/DL (8.5-10.1); Osmolality,Calculated 269.5 MOS/KG (273-304); Potassium 3.5 MMOL/L (3.5-5.1); Total Protein 7.4 G/DL (6.4-8.2)
[2021-04-14] MEDS: ursodioL 300 MG CAPSULE PO SCH ×2 (08:30→21:52)
[2021-04-14] MEDS: PANTOPRAZOLE 40 MG VIAL IV SCH (08:31)
[2021-04-14] MEDS: ENOXAPARIN 40 MG/0.4 ML SYRINGE SUBCUT SCH (08:31)
[2021-04-14] MEDS: ACETAMINOPHEN 325 MG TABLET PO PRN (13:00)
[2021-04-14] MEDS: FAT EMULSION 20% 250 ML IV SCH (14:48)
[2021-04-14] MEDS: ONDANSETRON 4 MG/2 ML VIAL IV PRN (18:37)
[2021-04-15] MEDS: METOCLOPRAMIDE 10 MG/2 ML VIAL IV SCH ×5 (00:37→23:32)
[2021-04-15] MEDS: INSULIN REGULAR 100 UNIT/ML SUBCUT SCH ×5 (00:38→23:45)
[2021-04-15 05:16] LABS: Albumin 2.7 G/DL (3.4-5.0); Bilirubin,Total 1.1 MG/DL (0.2-1.0); Calcium 8.7 MG/DL (8.5-10.1); Osmolality,Calculated 270.2 MOS/KG (273-304); Potassium 3.5 MMOL/L (3.5-5.1)
[2021-04-15] MEDS: ursodioL 300 MG CAPSULE PO SCH ×2 (09:50→21:20)
[2021-04-15] MEDS: ENOXAPARIN 40 MG/0.4 ML SYRINGE SUBCUT SCH (09:50)
[2021-04-15] MEDS: PANTOPRAZOLE 40 MG VIAL IV SCH (10:04)
[2021-04-15] MEDS: [UNRECOGNIZED DRUG - OTHER] IV SCH (13:38)
[2021-04-15] MEDS: INSULIN REGULAR IV SCH (13:38)
[2021-04-15] MEDS: MULTIVITAMIN IV SCH (13:38)
[2021-04-15] MEDS: FAT EMULSION 20% 250 ML IV SCH (16:09)
[2021-04-16] MEDS: METOCLOPRAMIDE 10 MG/2 ML VIAL IV SCH ×4 (05:06→23:31)
[2021-04-16] MEDS: INSULIN REGULAR 100 UNIT/ML SUBCUT SCH ×3 (05:07→18:28)
[2021-04-16 07:51] LABS: Albumin 2.6 G/DL (3.4-5.0); Bilirubin,Total 0.9 MG/DL (0.2-1.0); Calcium 8.4 MG/DL (8.5-10.1); Potassium 3.8 MMOL/L (3.5-5.1); Total Protein 6.7 G/DL (6.4-8.2)
[2021-04-16] MEDS: [UNRECOGNIZED DRUG - OTHER] IV SCH (09:36)
[2021-04-16] MEDS: INSULIN REGULAR IV SCH (09:36)
[2021-04-16] MEDS: ursodioL 300 MG CAPSULE PO SCH ×2 (09:36→21:25)
[2021-04-16] MEDS: MULTIVITAMIN IV SCH (09:36)
[2021-04-16] MEDS: PANTOPRAZOLE 40 MG VIAL IV SCH (09:36)
[2021-04-16] MEDS: ENOXAPARIN 40 MG/0.4 ML SYRINGE SUBCUT SCH (09:36)
[2021-04-16] MEDS: FAT EMULSION 20% 250 ML IV SCH (14:17)
[2021-04-17] MEDS: INSULIN REGULAR 100 UNIT/ML SUBCUT SCH ×4 (02:33→17:00)
[2021-04-17 04:58] LABS: Albumin 2.5 G/DL (3.4-5.0); Bilirubin,Total 1.1 MG/DL (0.2-1.0); Calcium 8.4 MG/DL (8.5-10.1); Osmolality,Calculated 274.8 MOS/KG (273-304); Potassium 3.7 MMOL/L (3.5-5.1); Total Protein 6.4 G/DL (6.4-8.2)
[2021-04-17] MEDS: METOCLOPRAMIDE 10 MG/2 ML VIAL IV SCH ×4 (05:01→23:24)
[2021-04-17 06:18] LABS: Barbiturates Screen,Urine Negative (Negative); Benzodiazepines Screen,Urine Negative (Negative); Cannabinoid Screen,Urine Positive (Negative); Opiate Screen,Urine Positive (Negative); Phencyclidine Screen,Urine Negative (Negative)
[2021-04-17] MEDS: INSULIN REGULAR IV SCH (08:22)
[2021-04-17] MEDS: [UNRECOGNIZED DRUG - OTHER] IV SCH (08:22)
[2021-04-17] MEDS: MULTIVITAMIN IV SCH (08:22)
[2021-04-17] MEDS: ursodioL 300 MG CAPSULE PO SCH ×2 (09:25→21:07)
[2021-04-17] MEDS: ENOXAPARIN 40 MG/0.4 ML SYRINGE SUBCUT SCH (09:31)
[2021-04-17] MEDS: PANTOPRAZOLE 40 MG VIAL IV SCH (09:31)
[2021-04-17] MEDS: FAT EMULSION 20% 250 ML IV SCH (16:10)
[2021-04-18] MEDS: [UNRECOGNIZED DRUG - OTHER] IV SCH ×2 (02:28→23:11)
[2021-04-18] MEDS: INSULIN REGULAR IV SCH ×2 (02:28→23:11)
[2021-04-18] MEDS: MULTIVITAMIN IV SCH ×2 (02:28→23:11)
[2021-04-18] MEDS: INSULIN REGULAR 100 UNIT/ML SUBCUT SCH ×4 (04:25→17:19)
[2021-04-18] MEDS: METOCLOPRAMIDE 10 MG/2 ML VIAL IV SCH ×3 (05:56→17:18)
[2021-04-18 07:35] LABS: Basophils # 0.1 10*3/uL (0.0-0.2); Eosinophils # 0.2 10*3/uL (0.0-0.87); Eosinophils % 3.3 % (0.00-10.9); Hematocrit 29.9 VOL% (42.0-52.0); Hemoglobin 10.6 GM/DL (14.0-18.0); Immature Granulocytes % 0.2 %; Immature Granulocytes Absolute 0.01 #; Lymphocytes % 20.6 % (21.2-54.2); Mean Corpuscular HGB Conc 35.5 GM/DL (32-36); Mean Corpuscular Volume 87.4 FL (87-102); Mean Platelet Volume 10.7 FL (9.6-12.0); Monocytes % 11.3 % (1.7-12.7); Neutrophils % 63.6 % (38.7-73.9); Platelet Count 154 T/CUMM (130-400); Red Blood Count 3.42 MC/CUMM (3.8-5.5); White Blood Count 4.9 T/CUMM (4-12)
[2021-04-18 08:17] LABS: Calcium 8.5 MG/DL (8.5-10.1)
[2021-04-18] MEDS: ursodioL 300 MG CAPSULE PO SCH ×2 (10:06→21:19)
[2021-04-18] MEDS: PANTOPRAZOLE 40 MG VIAL IV SCH (10:11)
[2021-04-18] MEDS: ENOXAPARIN 40 MG/0.4 ML SYRINGE SUBCUT SCH (10:12)
[2021-04-18] MEDS: FAT EMULSION 20% 250 ML IV SCH (13:46)
[2021-04-19] MEDS: INSULIN REGULAR 100 UNIT/ML SUBCUT SCH ×4 (02:05→18:19)
[2021-04-19] MEDS: METOCLOPRAMIDE 10 MG/2 ML VIAL IV SCH ×4 (02:05→19:09)
[2021-04-19] MEDS: ENOXAPARIN 40 MG/0.4 ML SYRINGE SUBCUT SCH (09:12)
[2021-04-19] MEDS: PANTOPRAZOLE 40 MG VIAL IV SCH (09:12)
[2021-04-19] MEDS: ursodioL 300 MG CAPSULE PO SCH ×2 (09:12→21:57)
[2021-04-19] MEDS: ONDANSETRON 4 MG/2 ML VIAL IV PRN (10:57)
[2021-04-19 11:35] LABS: Basophils # 0.1 10*3/uL (0.0-0.2); Basophils % 0.8 % (0.0-0.8); Eosinophils # 0.1 10*3/uL (0.0-0.87); Eosinophils % 2.2 % (0.00-10.9); Hematocrit 31.4 VOL% (42.0-52.0); Hemoglobin 10.6 GM/DL (14.0-18.0); Immature Granulocytes % 0.5 %; Immature Granulocytes Absolute 0.03 #; Lymphocytes # 1.3 10*3/uL (1.4-4.0); Lymphocytes % 21.7 % (21.2-54.2); Mean Corpuscular HGB Conc 33.8 GM/DL (32-36); Mean Corpuscular Volume 89.7 FL (87-102); Mean Platelet Volume 10.6 FL (9.6-12.0); Monocytes % 10.4 % (1.7-12.7); Neutrophils % 64.4 % (38.7-73.9); Platelet Count 159 T/CUMM (130-400); Red Cell Distribution Width 13.1 % (9.3-17.3); White Blood Count 5.9 T/CUMM (4-12)
[2021-04-19 12:25] LABS: Albumin 2.8 G/DL (3.4-5.0); Bilirubin,Total 0.71 MG/DL (0.2-1.0); Calcium 8.4 MG/DL (8.5-10.1); Osmolality,Calculated 275.7 MOS/KG (273-304); Potassium 4.2 MMOL/L (3.5-5.1); Total Protein 6.6 G/DL (6.4-8.2)
[2021-04-19] MEDS: FAT EMULSION 20% 250 ML IV SCH (14:53)
[2021-04-19] MEDS: [UNRECOGNIZED DRUG - OTHER] IV SCH (19:10)
[2021-04-19] MEDS: INSULIN REGULAR IV SCH (19:10)
[2021-04-19] MEDS: MULTIVITAMIN IV SCH (19:10)
[2021-04-20] MEDS: METOCLOPRAMIDE 10 MG/2 ML VIAL IV SCH ×4 (00:59→18:04)
[2021-04-20] MEDS: INSULIN REGULAR 100 UNIT/ML SUBCUT SCH ×5 (01:05→23:39)
[2021-04-20] MEDS: ENOXAPARIN 40 MG/0.4 ML SYRINGE SUBCUT SCH (10:15)
[2021-04-20] MEDS: ursodioL 300 MG CAPSULE PO SCH ×2 (10:15→20:48)
[2021-04-20] MEDS: PANTOPRAZOLE 40 MG VIAL IV SCH (10:18)
[2021-04-20] MEDS: FAT EMULSION 20% 250 ML IV SCH (16:01)
[2021-04-20] MEDS: MULTIVITAMIN IV SCH (16:02)
[2021-04-20] MEDS: [UNRECOGNIZED DRUG - OTHER] IV SCH (16:02)
[2021-04-20] MEDS: INSULIN REGULAR IV SCH (16:02)
[2021-04-21] MEDS: METOCLOPRAMIDE 10 MG/2 ML VIAL IV SCH ×4 (00:05→17:14)
[2021-04-21] MEDS: INSULIN REGULAR 100 UNIT/ML SUBCUT SCH ×4 (06:08→23:48)
[2021-04-21] MEDS: FAT EMULSION 20% 250 ML IV SCH (06:08)
[2021-04-21] MEDS: ursodioL 300 MG CAPSULE PO SCH ×2 (08:44→21:00)
[2021-04-21] MEDS: ENOXAPARIN 40 MG/0.4 ML SYRINGE SUBCUT SCH (08:45)
[2021-04-21] MEDS: PANTOPRAZOLE 40 MG VIAL IV SCH (08:46)
[2021-04-21] MEDS: MULTIVITAMIN IV SCH (11:13)
[2021-04-21] MEDS: INSULIN REGULAR IV SCH (11:13)
[2021-04-21] MEDS: [UNRECOGNIZED DRUG - OTHER] IV SCH (11:13)
[2021-04-22] MEDS: METOCLOPRAMIDE 10 MG/2 ML VIAL IV SCH ×4 (00:29→17:45)
[2021-04-22] MEDS: HYDROcod/ACETAMIN 7.5-325 MG/15 ML UDCUP PO PRN ×2 (01:37→20:53)
[2021-04-22] MEDS: INSULIN REGULAR 100 UNIT/ML SUBCUT SCH ×3 (06:07→17:53)
[2021-04-22] MEDS: PANTOPRAZOLE 40 MG VIAL IV SCH (09:48)
[2021-04-22] MEDS: ENOXAPARIN 40 MG/0.4 ML SYRINGE SUBCUT SCH (09:48)
[2021-04-22] MEDS: ursodioL 300 MG CAPSULE PO SCH ×2 (09:48→20:46)
[2021-04-22] MEDS: MULTIVITAMIN IV SCH (17:45)
[2021-04-22] MEDS: [UNRECOGNIZED DRUG - OTHER] IV SCH (17:45)
[2021-04-22] MEDS: INSULIN REGULAR IV SCH (17:45)
[2021-04-22] MEDS: SUCRALFATE 1 GM/10 ML UDCUP PO SCH (20:46)
[2021-04-23] MEDS: INSULIN REGULAR 100 UNIT/ML SUBCUT SCH ×4 (00:59→18:24)
[2021-04-23] MEDS: METOCLOPRAMIDE 10 MG/2 ML VIAL IV SCH ×5 (01:19→23:19)
[2021-04-23] MEDS: ursodioL 300 MG CAPSULE PO SCH ×2 (08:44→21:39)
[2021-04-23] MEDS: PANTOPRAZOLE 40 MG VIAL IV SCH (08:44)
[2021-04-23] MEDS: SUCRALFATE 1 GM/10 ML UDCUP PO SCH (08:44)
[2021-04-23] MEDS: ENOXAPARIN 40 MG/0.4 ML SYRINGE SUBCUT SCH (10:26)
[2021-04-23] MEDS: FAT EMULSION 20% 250 ML IV SCH (14:48)
[2021-04-23] MEDS: [UNRECOGNIZED DRUG - OTHER] IV SCH (18:28)
[2021-04-23] MEDS: INSULIN REGULAR IV SCH (18:28)
[2021-04-23] MEDS: MULTIVITAMIN IV SCH (18:28)
[2021-04-23] MEDS: ACETAMINOPHEN 325 MG TABLET PO PRN (19:51)
[2021-04-23] MEDS: HYDROcod/ACETAMIN 7.5-325 MG/15 ML UDCUP PO PRN (21:44)
[2021-04-24] MEDS: INSULIN REGULAR 100 UNIT/ML SUBCUT SCH ×4 (00:49→17:53)
[2021-04-24] MEDS: METOCLOPRAMIDE 10 MG/2 ML VIAL IV SCH ×4 (05:42→23:41)
[2021-04-24 09:25] LABS: Basophils % 0.4 % (0.0-0.8); Hematocrit 33.9 VOL% (42.0-52.0); Hemoglobin 11.9 GM/DL (14.0-18.0); Immature Granulocytes % 0.8 %; Immature Granulocytes Absolute 0.04 #; Lymphocytes # 0.3 10*3/uL (1.4-4.0); Lymphocytes % 6.4 % (21.2-54.2); Mean Corpuscular HGB Conc 35.1 GM/DL (32-36); Mean Corpuscular Volume 86.5 FL (87-102); Mean Platelet Volume 10.9 FL (9.6-12.0); Monocytes % 2.3 % (1.7-12.7); Neutrophils % 90.1 % (38.7-73.9); Red Blood Count 3.92 MC/CUMM (3.8-5.5); Red Cell Distribution Width 13.2 % (9.3-17.3); White Blood Count 5.2 T/CUMM (4-12)
[2021-04-24 09:33] LABS: Platelet Count 87 T/CUMM (130-400)
[2021-04-24 09:51] LABS: Hypochromasia 1+; Microcytosis 1+; Platelet Estimate Decreased
[2021-04-24 10:03] LABS: Albumin 2.8 G/DL (3.4-5.0); Bilirubin,Total 1.4 MG/DL (0.2-1.0); Calcium 8.6 MG/DL (8.5-10.1); Osmolality,Calculated 266.4 MOS/KG (273-304); Potassium 3.6 MMOL/L (3.5-5.1); Total Protein 7.4 G/DL (6.4-8.2)
[2021-04-24] MEDS: PANTOPRAZOLE 40 MG VIAL IV SCH (10:52)
[2021-04-24] MEDS: SUCRALFATE 1 GM/10 ML UDCUP PO SCH (10:52)
[2021-04-24] MEDS: ursodioL 300 MG CAPSULE PO SCH ×2 (10:52→20:32)
[2021-04-24] MEDS: ENOXAPARIN 40 MG/0.4 ML SYRINGE SUBCUT SCH (10:52)
[2021-04-24] MEDS: ACETAMINOPHEN 325 MG TABLET PO PRN ×3 (10:56→23:32)
[2021-04-24] MEDS: [UNRECOGNIZED DRUG - OTHER] IV SCH ×2 (12:16→17:23)
[2021-04-24] MEDS: INSULIN REGULAR IV SCH ×2 (12:16→17:23)
[2021-04-24] MEDS: MULTIVITAMIN IV SCH ×2 (12:16→17:23)
[2021-04-24] MEDS: FAT EMULSION 20% 250 ML IV SCH (13:30)
[2021-04-24 14:48] LABS: Bacteria,Urine Occasional /HPF (Few); Blood, Urine Negative (Negative); Glucose,Urine (UA) Negative (Negative); Hyaline Casts,Urine 1 /LPF (0-3); Ketones,Urine Negative (Negative); Mucus,Urine Many /LPF (Occasional); Nitrite,Urine Negative (Negative); Protein,Urine 100 MG/DL; RBC,Urine 1 /HPF (0-4); Squamous Epithelial Cell,Urine Occasional /HPF (0-10); Urine Appearance CLEAR (Clear); Urine Color Amber (Yellow); Urine Specific Gravity 1.033 (1.001-1.035)
[2021-04-24 14:50] LABS: Bilirubin,Urine Small mg/dL (Negative)
[2021-04-25] MEDS: INSULIN REGULAR 100 UNIT/ML SUBCUT SCH ×4 (00:05→18:22)
[2021-04-25] MEDS: METOCLOPRAMIDE 10 MG/2 ML VIAL IV SCH ×3 (06:00→18:38)
[2021-04-25] MEDS: ENOXAPARIN 40 MG/0.4 ML SYRINGE SUBCUT SCH (09:04)
[2021-04-25] MEDS: PANTOPRAZOLE 40 MG VIAL IV SCH (09:04)
[2021-04-25] MEDS: SUCRALFATE 1 GM/10 ML UDCUP PO SCH (09:04)
[2021-04-25] MEDS: ursodioL 300 MG CAPSULE PO SCH ×2 (09:05→21:17)
[2021-04-25] MEDS: ACETAMINOPHEN 325 MG TABLET PO PRN ×2 (11:22→19:25)
[2021-04-25] MEDS: FAT EMULSION 20% 250 ML IV SCH (16:16)
[2021-04-25] MEDS: [UNRECOGNIZED DRUG - OTHER] IV SCH (17:37)
[2021-04-25] MEDS: MULTIVITAMIN IV SCH (17:37)
[2021-04-25] MEDS: INSULIN REGULAR IV SCH (17:37)
[2021-04-26] MEDS: METOCLOPRAMIDE 10 MG/2 ML VIAL IV SCH ×5 (00:23→23:49)
[2021-04-26] MEDS: INSULIN REGULAR 100 UNIT/ML SUBCUT SCH ×5 (00:54→23:49)
[2021-04-26] MEDS: HYDROcod/ACETAMIN 7.5-325 MG/15 ML UDCUP PO PRN (05:45)
[2021-04-26] MEDS: PANTOPRAZOLE 40 MG VIAL IV SCH (08:29)
[2021-04-26] MEDS: ursodioL 300 MG CAPSULE PO SCH ×2 (08:30→22:27)
[2021-04-26] MEDS: SUCRALFATE 1 GM/10 ML UDCUP PO SCH (08:31)
[2021-04-26] MEDS: ENOXAPARIN 40 MG/0.4 ML SYRINGE SUBCUT SCH (09:09)
[2021-04-27 05:19] LABS: Basophils # 0.1 10*3/uL (0.0-0.2); Basophils % 0.6 % (0.0-0.8); Eosinophils # 0.1 10*3/uL (0.0-0.87); Eosinophils % 0.6 % (0.00-10.9); Hematocrit 31.7 VOL% (42.0-52.0); Hemoglobin 11.3 GM/DL (14.0-18.0); Immature Granulocytes % 0.9 %; Immature Granulocytes Absolute 0.07 #; Lymphocytes # 2.3 10*3/uL (1.4-4.0); Lymphocytes % 27.5 % (21.2-54.2); Mean Corpuscular HGB Conc 35.6 GM/DL (32-36); Mean Corpuscular Volume 84.8 FL (87-102); Mean Platelet Volume 12.5 FL (9.6-12.0); Monocytes % 13.7 % (1.7-12.7); Neutrophils % 56.7 % (38.7-73.9); Platelet Count 64 T/CUMM (130-400); Red Blood Count 3.74 MC/CUMM (3.8-5.5); Red Cell Distribution Width 13.6 % (9.3-17.3); White Blood Count 8.2 T/CUMM (4-12)
[2021-04-27] MEDS: METOCLOPRAMIDE 10 MG/2 ML VIAL IV SCH ×3 (05:35→17:27)
[2021-04-27] MEDS: HYDROcod/ACETAMIN 7.5-325 MG/15 ML UDCUP PO PRN (05:36)
[2021-04-27 05:41] LABS: Calcium 8.8 MG/DL (8.5-10.1); Osmolality,Calculated 266.4 MOS/KG (273-304); Potassium 3.6 MMOL/L (3.5-5.1)
[2021-04-27 05:48] LABS: Hypochromasia 1+; Lymphocytes 15 % (20-55); Microcytosis 1+; Ovalocytes Slight; Platelet Estimate Decreased; Segmented Neutrophils 75 % (50-85); Total Cells Counted 100
[2021-04-27] MEDS: INSULIN REGULAR 100 UNIT/ML SUBCUT SCH ×3 (07:08→18:11)
[2021-04-27] MEDS: SUCRALFATE 1 GM/10 ML UDCUP PO SCH (08:39)
[2021-04-27] MEDS: PANTOPRAZOLE 40 MG VIAL IV SCH (08:39)
[2021-04-27] MEDS: ursodioL 300 MG CAPSULE PO SCH ×2 (08:40→21:52)
[2021-04-27] MEDS: ENOXAPARIN 40 MG/0.4 ML SYRINGE SUBCUT SCH (08:40)
[2021-04-27] MEDS ORDERED: FLUCONAZOLE INJ 200 MG/100 ML PREMIX IV SCH (13:30)
[2021-04-27] MEDS: MICAFUNGIN 100 MG in SODIUM CHLORIDE 0.9% 100 ML IV SCH (14:40)
[2021-04-28] MEDS: INSULIN REGULAR 100 UNIT/ML SUBCUT SCH ×4 (00:20→18:14)
[2021-04-28] MEDS: METOCLOPRAMIDE 10 MG/2 ML VIAL IV SCH ×4 (01:20→18:40)
[2021-04-28] MEDS: ursodioL 300 MG CAPSULE PO SCH ×2 (09:08→21:54)
[2021-04-28] MEDS: ENOXAPARIN 40 MG/0.4 ML SYRINGE SUBCUT SCH (09:08)
[2021-04-28] MEDS: PANTOPRAZOLE 40 MG VIAL IV SCH (09:08)
[2021-04-28] MEDS: SUCRALFATE 1 GM/10 ML UDCUP PO SCH (09:08)
[2021-04-28] MEDS: ONDANSETRON 4 MG/2 ML VIAL IV PRN (10:25)
[2021-04-28] MEDS: MICAFUNGIN 100 MG in SODIUM CHLORIDE 0.9% 100 ML IV SCH (14:39)
[2021-04-29] MEDS: INSULIN REGULAR 100 UNIT/ML SUBCUT SCH ×3 (00:50→12:25)
[2021-04-29] MEDS: METOCLOPRAMIDE 10 MG/2 ML VIAL IV SCH ×3 (00:51→12:19)
[2021-04-29 06:27] LABS: Basophils % 0.4 % (0.0-0.8); Eosinophils # 0.1 10*3/uL (0.0-0.87); Eosinophils % 1.5 % (0.00-10.9); Hematocrit 33.2 VOL% (42.0-52.0); Hemoglobin 11.5 GM/DL (14.0-18.0); Immature Granulocytes % 1.3 %; Immature Granulocytes Absolute 0.09 #; Lymphocytes % 28.2 % (21.2-54.2); Mean Corpuscular HGB Conc 34.6 GM/DL (32-36); Mean Corpuscular Volume 87.6 FL (87-102); Mean Platelet Volume 11.4 FL (9.6-12.0); Monocytes % 9.9 % (1.7-12.7); Neutrophils % 58.7 % (38.7-73.9); Platelet Count 144 T/CUMM (130-400); Red Blood Count 3.79 MC/CUMM (3.8-5.5); Red Cell Distribution Width 14.2 % (9.3-17.3); White Blood Count 7.2 T/CUMM (4-12)
[2021-04-29 06:56] LABS: Calcium 8.9 MG/DL (8.5-10.1); Osmolality,Calculated 276.7 MOS/KG (273-304); Potassium 3.7 MMOL/L (3.5-5.1)
[2021-04-29] MEDS: SUCRALFATE 1 GM/10 ML UDCUP PO SCH (09:46)
[2021-04-29] MEDS: ursodioL 300 MG CAPSULE PO SCH (09:46)
[2021-04-29] MEDS: ENOXAPARIN 40 MG/0.4 ML SYRINGE SUBCUT SCH (09:47)
[2021-04-29] MEDS: PANTOPRAZOLE 40 MG VIAL IV SCH (09:53)
[2021-04-29 12:06] VITALS: BP 135/64
[2021-04-29] MEDS ORDERED: FLUCONAZOLE 200 MG TABLET PO ONE (14:02)
[2021-04-29] MEDS: MICAFUNGIN 100 MG in SODIUM CHLORIDE 0.9% 100 ML IV SCH (15:02)
== END 2021-04-29 15:20 | disposition home or self-care (01) | DRG 326 ==
LOC: EDBD → EDUNIT# → N.ED 17:58 → N.ICU 22:14 → N.3E 03-25 10:08
PROVIDERS: ADMIT Surgery; ATTEND Surgery